=== PATIENT | male | born 1960 ===

== ENCOUNTER 2024-12-09 17:23 | Outpatient (REF) | payer BC, SELFPAY ==
[2024-12-09 15:18] LABS: Bilirubin Negative (Negative); Blood Negative (Negative); Clarity Clear (Clear); Glucose Negative (Negative); Ketones Negative (Negative); Leukocyte Esterase Negative (Negative); Nitrite Negative (Negative); Specific Gravity 1.015 (1.005-1.025); Urobilinogen 0.2 mg/dL (Up to 0.2)
[2024-12-09 15:51] LABS: Calculated LDL 106 mg/dL (<100); Cholesterol 182 mg/dL (<200); HDL Cholesterol 55 mg/dL (>or=40); Triglyceride 107 mg/dL (<150)
[2024-12-09 22:25] LABS: PSA, Diagnostic 0.9 ng/mL (<=4.5)
== END 2024-12-09 17:24 | disposition home or self-care (01) ==
LOC: NCHCN 17:23
PROVIDERS: Visit Provider Nurse Practitioner Family
DX: R35.0 Frequency of micturition (principal); I25.10 Atherosclerotic heart disease of native coronary artery without angina pectoris
CPT/HCPCS: 80061; 81003; 84153